=== PATIENT | male | born 2005 | race Two or more races ===

== ENCOUNTER 2025-09-18 16:11 | Emergency (ER) | payer MEDICAID, SELFPAY ==
[2025-09-18 16:21] VITALS: BP 124/65; PULSE 90; RESP 16; TEMP 36.6; O2SAT 95
--- NOTE | 2025-09-18 16:30 | EKG_ITS ---
[facility] Test Date: 2025-09-18 Pat Name: BOSSMAN PEREZ Department: Room: - Gender: Male [employer]: : 2005 Requested By: Raheem Bustillos Order Number: [id number] Reading MD: Raheem Bustillos Measurements Intervals [place] Rate: 61 P: 16 MN: 161 QRS: 18 QRSD: 92 T: 17 QT: 390 QTc: 393 Interpretive Statements SINUS RHYTHM Compared to ECG 01/21/2023 15:10:57 No significant changes /store/S0/[id number].pdf
[2025-09-18 16:36] VITALS: BMI 33.5
[2025-09-18] MEDS: FAMOTIDINE INJ 10 MG/ML VIAL 2 ML 20 MG IVP (16:48)
[2025-09-18] MEDS: MethylPREDNISolone SOD SUCC 62.5 MG/ML 2ML VIAL 125 MG IVP (16:49)
--- NOTE | 2025-09-18 16:58 | PD.EDALLER ---
ED Allergic Reaction RME/HPI General Chief complaint: Allergic Reaction Stated complaint: ALLERGIC REAC TO ROBITUSSIN,SOB,HIVES, Time Seen by Provider: 09/18/25 16:29 Arrival date/time: 09/18/25 16:11 Limitations: no limitations RME / HPI RME / HPI narrative: 20 year old male with no known medical history presents to the ED for evaluation of possible allergic reaction today. Patient states this morning he took a cough medication, similar to Robitussin (exact brand unknown). Shortly after taking the medication noticed a warm sensation, itching, rash to his arms, and shortness of breath, prompting ED visit. Patient additionally reports yesterday he developed a fever with mild cough. Father adds that in their family there is an illness going around and he himself was sick just 5 days ago. The patient denies any prior history of allergies. Family History: Diabetes mellitus Allergies: No known drug allergies Related Data Home Medications ?Medication ?Instructions ?Recorded ?Confirmed fluticasone propionate 50 1 spray intranasal QDAY 07/01/19 07/01/19 mcg/actuation nasal spray,suspension (Flonase Allergy Relief) Previous Rx's ?Medication ?Instructions ?Recorded clindamycin HCl 300 mg capsule 300 mg PO Q6H #20 caps 07/05/19 ibuprofen 600 mg tablet 600 mg PO TID PRN pain #30 tabs 01/21/23 albuterol sulfate 90 mcg/actuation 2 inh inhalation Q6H PRN shortness 02/25/23 breath activated powder of breath #1 ea inhaler,sensor (Proair Digihaler) fluconazole 200 mg tablet 400 mg (2 x 200 mg) PO QDAY #60 02/25/23 (Diflucan) tabs oseltamivir 75 mg capsule (Tamiflu) 75 mg PO BID 5 days #10 caps 09/18/25 prednisone 20 mg tablet See Taper PO QDAY allergic 09/18/25 reaction #18 tabs Allergies Allergy/AdvReac Type Severity Reaction Status Date / Time No Known Allergies Allergy Verified 01/21/23 14:41 Review of Systems Review of Systems Systems Reviewed: All systems reviewed, normal except as documented Past Medical History Past Medical History GASTROINTESTINAL: Positive Gastrointestinal Disorders and Obesity Family History FAMILY HISTORY: Positive Family Psychiatric Problems (BIPOLAR- BROTHER), Family Respiratory Disorders (ASTHMA- BROTHER), Family Cardiac Disorders (HTN- GRANDMA) and Family Surgery; Negative Family Gastrointestinal Problems, Family Cancer or Family Anesthesia Reaction Social History SMOKING STATUS: Never smoker ED Exam General Limitations: Present no limitations General appearance: Present alert, in no apparent distress and obese Head Head exam: Present atraumatic, normocephalic and normal inspection Eye Eye exam: Present normal appearance, PERRL and EOMI ENT ENT exam: Present normal exam, normal oropharynx and mucous membranes moist Neck Neck exam: Present normal inspection, full ROM and trachea midline Chest Chest inspection: Present normal inspection and symmetric chest wall rise Respiratory Respiratory exam: Present normal lung sounds bilaterally and other (airway is clear, no wheezing ) Cardiovascular Cardiovascular exam: Present regular rate, normal rhythm and normal heart sounds Abdominal Exam Abdominal exam: Present soft and normal bowel sounds Extremities Exam Extremities exam: Present full ROM Neurological Exam Neurological exam: Present alert, oriented X3 and CN II-XII intact Psychiatric Psychiatric exam: Present normal affect and normal mood Skin Skin exam: Present warm, dry, intact, normal color and rash (papular rash on arms and chest that is erythematous ) Course Quality Measures none Orders Category Date Time Status Bedside COVID-19 Antigen Test NOW Care 09/18/25 16:33 Active Bedside Influenza A&B Antigen Test NOW Care 09/18/25 16:33 Completed [employer] NOW Care 09/18/25 16:30 Active Continuous Pulse Oximetry NOW Care 09/18/25 16:30 Completed EKG (ED ONLY) *Do not use* NOW Care 09/18/25 16:30 Completed Insert IV NOW Care 09/18/25 16:30 Completed EKG (ED Only) Stat Exams 09/18/25 16:30 Draft CBC Stat Lab 09/18/25 16:41 Received Comprehensive Metabolic Panel Stat Lab 09/18/25 16:41 Completed DiphenhydrAMINE INJ [Benadryl Inj] Med 09/18/25 16:30 Discontinued 25 mg IVP X1 ONE Famotidine Inj [Pepcid Inj] Med 09/18/25 16:30 Discontinued 20 mg IVP X1 ONE MethylPREDNISolone.* [SoluMEDROL Inj] Med 09/18/25 16:30 Discontinued 125 mg IVP X1 ONE Vital Signs Vital signs: Vital Signs Temperature 97.9 F 09/18/25 16:21 Pulse Rate 90 09/18/25 16:21 Respiratory Rate 16 09/18/25 16:21 Blood Pressure 124/65 09/18/25 16:21 Pulse Oximetry (%) 95 09/18/25 16:21 Oxygen Delivery Method Room Air 09/18/25 16:21 Pulse ox is 95% on room air which is adequate. Allergic Reaction MDM Narrative MDM Narrative:: Angelique Dejesus am scribing for and in the presence of Dr. Morgan. Patient data External records reviewed:: [facility] previous records Clinical information provided by:: patient Social determinants that could affect healthcare access:: none Patient has the following chronic illnesses:: none reported How is presenting disease/condition affected by chronic disease/condition?: no chronic disease Evaluation data The following diagnostics were reviewed and interpreted by me:: lab results and EKG tracing(s) (EKG @ 16:51h, interpreted by me, normal sinus rhythm, rate 61, no STEMI. ) Lab and/or radiology exams considered but not ordered:: None Interpretation Summary: No acute findings Medications / Prescriptions Medications or Prescriptions considered but not ordered:: None Medication administrations:: Medication Administration History Discontinued Medications Diphenhydramine HCl (Diphenhydramine Inj 50 Mg/Ml Vial) 25 mg IVP X1 ONE Stop: 09/18/25 16:31 Last Admin: 09/18/25 16:49 Dose: 25 mg Documented By: HEIDI Famotidine (Famotidine Inj 10 Mg/Ml Vial 2 Ml) 20 mg IVP X1 ONE Stop: 09/18/25 16:31 Last Admin: 09/18/25 16:48 Dose: 20 mg Documented By: HEIDI Methylprednisolone Sodium Succinate (Methylprednisolone Sod Succ 62.5 Mg/Ml 2ml Vial) 125 mg IVP X1 ONE Stop: 09/18/25 16:31 Last Admin: 09/18/25 16:49 Dose: 125 mg Documented By: HEIDI See above Consultations Consultation(s) initiated? (list below): No Diagnosis Most likely diagnosis given after review of the tests above:: Influenza A Allergic reaction Admission Indicated Admission indicated?: not indicated Admission Request Was there a request for admission?: No Disposition Plan Disposition Plan: Discharge Discharge Attestation Discharge Attestation: The patient and all family members were given an opportunity to ask questions and understood the discharge instructions. Discharge instructions specifically effects, indications for sooner follow up or return to the emergency department, and the expected course of current diagnosis. Patient condition: Stable Discharge Plan Plan Patient Disposition: HOME (Self Care) Patient condition on transfer: Stable Prescriptions/Referrals Prescriptions/Med Rec: New oseltamivir [Tamiflu] 75 mg capsule 75 mg PO BID 5 Days Qty: 10 0RF prednisone 20 mg tablet See Taper PO QDAY MDD 3 Qty: 18 0RF Taper: Prednisone Taper 20 mg DAILY for 2 Days and 0 Hour 10 mg DAILY for 2 Days and 0 Hour 5 mg DAILY for 7 Days and 0 Hour Rx Instructions: Take 3 Tabs q Day for 3 days then take 2 tabs q Day for 3 days then take 1 tablet q Day for 3 days then D/C No Action fluticasone propionate [Flonase Allergy Relief] 50 mcg/actuation [place],Suspension 1 spray INTRANASAL QDAY clindamycin HCl 300 mg capsule 300 mg PO Q6H Qty: 20 0RF ibuprofen 600 mg tablet 600 mg PO TID PRN (Reason: pain) Qty: 30 0RF fluconazole [Diflucan] 200 mg tablet 400 mg PO QDAY Qty: 60 0RF Proair Digihaler 90 mcg/actuation aero powdr breath act w/sensor 2 inh inhalation Q6H PRN (Reason: shortness of breath) Qty: 1 0RF Referrals: Marilia Henson PA-C [Primary Care Provider] - In 1 week Problem List Clinical Impression: Influenza A, Allergic reaction Patient/Caregiver Discharge Instructions Discharge Activity: activity as tolerated Education Materials: The Flu (Influenza), ED Medicine Reaction: Allergic Additional Instructions: Take Tylenol or Motrin for pain. Take Tamiflu as prescribed. Bedrest. Prednisone has been prescribed for your allergic reaction and take the medication as directed. Print Language: Greenlandic Stand Alone Forms: Jade Award Info., Patient Portal Info Letter
[2025-09-18 17:07] LABS: Basophils # (Auto) 0.0 Thou/mm3 (0.0-0.2); Basophils % (Auto) 0 % (0-2.5); Eosinophils # (Auto) 0.1 Thou/mm3 (0.0-0.5); Eosinophils % (Auto) 1 % (0-10); Hematocrit 48.2 % (41.0-53.0); Hemoglobin 16.5 g/dL (13.5-16.0); Immature Granulocytes Auto 0.06 Thou/mm3 (0.00-0.00); Lymphocytes # (Auto) 1.3 Thou/mm3 (1.0-4.8); Lymphocytes % (Auto) 16 % (10-50); Mean Corpuscular HGB Conc 34.2 g/dl (31.0-37.0); Mean Corpuscular Hemoglobin 27.5 pg (25.0-35.0); Mean Corpuscular Volume 80 fL (80-100); Monocytes # (Auto) 1.1 Thou/mm3 (0.0-0.8); Monocytes % (Auto) 13 % (0-12); Neutrophils # (Auto) 5.6 Thou/mm3 (1.8-7.7); Neutrophils % (Auto) 69 % (37-80); Nucleated Red Blood Cell # 0.00 Thou/mm3 (0.00-0.00); Nucleated Red Blood Cell % 0 /100 WBC (0); Platelet Count 229 Thou/mm3 (140-440); RDW Standard Deviation 38.3 fL (35.1-43.9); Red Blood Count 6.00 Miln/mm3 (4.50-5.90); White Blood Count 8.1 Thou/mm3 (3.8-10.6)
[2025-09-18 17:30] LABS: Alanine Aminotransferase 63 U/L (10-49); Albumin, Serum 4.7 gm/dL (3.5-5.0); Albumin/Globulin Ratio 1.6 (1.2-2.2); Alkaline Phosphatase 74 U/L (46-116); Anion Gap 15 (7-16); Aspartate Amino Transferase 41 U/L (0-34); BUN/Creatinine Ratio 10 Ratio (12-20); Bilirubin,Total 0.3 mg/dL (0.3-1.2); Blood Urea Nitrogen 9 mg/dL (9-23); Calcium 8.6 mg/dL (8.3-10.6); Calcium (Corrected) 8.6 mg/dL (8.5-10.1); Carbon Dioxide 20.4 mMol/L (20.0-31.0); Chloride 106 mMol/L (98-107); Creatinine (Component) 0.9 mg/dL (0.6-1.3); Estimated Creatinine Clearance 162.9 mL/min (>60); Globulin 2.9 gm/dL (2.3-3.5); Glucose 173 mg/dL (74-106); Osmolality,Calculated 283 (275-295); Potassium 3.5 mMol/L (3.4-5.1); Sodium 141 mMol/L (136-145); Total Protein 7.6 gm/dL (5.7-8.2); eGFR > 60 See Note
[2025-09-18 17:58] VITALS: BP 111/57; PULSE 73; RESP 18; TEMP 36.7; O2SAT 93
[2025-09-18 19:10] VITALS: BP 111/57; PULSE 91; RESP 19; TEMP 36.6; O2SAT 98
== END 2025-09-18 19:11 | disposition home or self-care (01) ==
PROVIDERS: Emergency Provider Family Medicine; PCP Physician Assistant
DX: J10.1 Influenza due to other identified influenza virus with other respiratory manifestations (principal); T78.40XA Allergy, unspecified, initial encounter; X58.XXXA Exposure to other specified factors, initial encounter
CPT/HCPCS: 36415; 80053; 85025; 87502; 87635; 93005; 96374; 96375; 99284; J1200; J2919; J3490